=== PATIENT | male | born 1980 | race Caucasian/White ===

== ENCOUNTER 2016-08-07 11:40 | Emergency (ER) | payer SELFPAY ==
[~2016-08-07] VITALS: Ht 160 cm; Wt 79.4 kg
[2016-08-07 11:50] VITALS: BP 119/74
--- NOTE | 2016-08-07 12:12 | NUR ---
PATIENT PRESENTS TO ED FOR EVALUATION OF EPITAXIS SINCE THIS AM . PT STATES THE BLEEDING HAS BECOME INTERMITTENT UPON ARRIVAL TO ER . DENIES N/V/D; SKIN IS PINK/WARM/DRY; AAOX4 WITH EVEN AND STEADY GAIT; LUNGS CLEAR BL; HR EVEN AND REGULAR; PT DENIES ANY FEVER, CP, SOB, OR COUGH AT THIS TIME; PATIENT STATES PAIN OF 0/10 AT THIS TIME; VSS; PT IN OVERFLOW. ER MD MADE AWARE OF PT STATUS.
--- NOTE | 2016-08-07 12:13 | NUR ---
Patient ambulated to OF to be evaluated as fast track. RN evaluating patient.
--- NOTE | 2016-08-07 12:13 | NUR ---
Dr. Lopez evaluating patient in OF.
--- NOTE | 2016-08-07 12:41 | NUR ---
Patient ambulated to bed 8 for further care. RN evaluating patient at bedside.
[2016-08-07 13:27] VITALS: BP 118/82
--- NOTE | 2016-08-07 13:28 | NUR ---
Patient discharged with v/s stable. Written and verbal after care instructions given and explained. Patient verbalized understanding. Ambulatory with steady gait. All questions addressed prior to discharge. Advised to follow up with PMD.
== END 2016-08-07 13:28 | disposition home or self-care (01) ==
LOC: MED 11:40
DX: R04.0 Epistaxis (principal)